=== PATIENT | female | born 1990 | race American Indian/Alaskan Native ===

== ENCOUNTER 2019-01-21 18:06 | Emergency (ER) | payer MEDICAID ==
--- NOTE | 2019-01-21 18:14 | Event Note ---
ED Screening Note Date of service: 01/21/19 Time: 18:11 ED Screening Note: This is a 28 y.o. F. that presents to the ER with N/V and abdominal cramping. Vomiting started last night. Reports hematemesis today. States abdominal cramping resolved. LMP 11/07/18 Patient is 10 weeks gestation. This initial assessment/diagnostic orders/clinical plan/treatment(s) is/are subject to change based on patients health status, clinical progression and re- assessment by fellow clinical providers in the ED. Further treatment and workup at subsequent clinical providers discretion. Patient/guardian urged not to elope from the ED as their condition may be serious if not clinically assessed and managed. Initial orders include: Labs
[2019-01-21 19:34] LABS: Basophils % (Auto) 0.4 % (0.0-1.8); Eosinophils % (Auto) 0.3 % (0.0-4.3); Hematocrit 35.4 % (30.3-42.9); Hemoglobin 12.1 gm/dl (10.1-14.3); Lymphocytes # (Auto) 2.5 K/mm3 (1.2-5.4); Lymphocytes % (Auto) 28.8 % (13.4-35.0); Mean Corpuscular HGB Conc 34 % (30-34); Mean Corpuscular Volume 90 fl (79-97); Monocytes % (Auto) 11.2 % (0.0-7.3); Platelet Count 282 K/mm3 (140-440); Red Blood Count 3.95 M/mm3 (3.65-5.03)
[2019-01-21 21:26] LABS: Color,Urine Yellow (Yellow)
[2019-01-21 21:27] LABS: Bilirubin,Urine Negative (Negative); Blood,Urine Negative (Negative)
--- NOTE | 2019-01-21 21:55 | Emergency Department Report ---
ED HPI - General Chief complaint: Nausea/Vomiting/Diarrhea Stated complaint: 10 WK PREG/VOMITING BLOOD Time Seen by Provider: 01/21/19 18:11 Source: patient Mode of arrival: Ambulatory Limitations: No Limitations - History of Present Illness Initial comments: Renata is a very pleasant 28-year-old female with history of PCOS and ovarian dermoid cyst who is currently 10 weeks 5 days who presents with 2 episodes of vomiting over the past 24 hours. She vomited bright red blood today one episode. She currently denies abdominal pain. No vomiting. Her [employer] Dr. Velazquez asked her to be evaluated in the emergency department. She is currently symptom-free. She did not have morning sickness. This is her first . Her estimated due date is August 14, 2019. She plans to deliver her baby at [place] or [facility]. MD Complaint: other (nondescript abdominal pain resolved. Concern about hematemesis) -: days(s) (1) Severity: mild Quality: cramping Consistency: now resolved Improves with: none Worsens with: none Associated symptoms: nausea/vomiting, other (hematemesis) :: Yes Number of weeks : 10 OB History - Current : no complications OB History - Previous Pregnancies: other (no previous pregnancies) Pre-toi care: followed by OB, previous ultrasound confi - Related Data Previous Rx's Medication Instructions Recorded Last Taken Type metroNIDAZOLE [Flagyl TAB] 500 mg PO Q12HR #14 tab 05/03/15 Unknown Rx traMADol [Ultram 50 MG tab] 50 mg PO Q6HR PRN #20 tablet 05/03/15 Unknown Rx Nitrofurantoin Blanco/M-Cryst 100 mg PO Q12HR 10 Days #20 capsule 01/21/19 Unknown Rx [Macrobid CAP] Promethazine [Phenergan] 25 mg PO Q6HR PRN #15 tab 01/21/19 Unknown Rx Allergies Allergy/AdvReac Type Severity Reaction Status Date / Time No Known Allergies Allergy Unverified 05/02/15 20:41 ED Review of Systems ROS: Stated complaint: 10 WK PREG/VOMITING BLOOD Other details as noted in HPI Comment: All other systems reviewed and negative Constitutional: denies: fever, malaise Gastrointestinal: abdominal pain, nausea, vomiting ED Past Medical Hx - Past Medical History Previous Medical History?: Yes Additional medical history: PCOS. RIGHT OVARIAN DERMOID CYST - Surgical History Past Surgical History?: No - Social History Smoking Status: Never Smoker Substance Use Type: None - Medications Home Medications: Home Medications Medication Instructions Recorded Confirmed Last Taken Type metroNIDAZOLE [Flagyl TAB] 500 mg PO Q12HR #14 tab 05/03/15 Unknown Rx traMADol [Ultram 50 MG tab] 50 mg PO Q6HR PRN #20 tablet 05/03/15 Unknown Rx Nitrofurantoin Blanco/M-Cryst 100 mg PO Q12HR 10 Days #20 capsule 01/21/19 Unknown Rx [Macrobid CAP] Promethazine [Phenergan] 25 mg PO Q6HR PRN #15 tab 01/21/19 Unknown Rx ED Physical Exam - General Limitations: No Limitations General appearance: alert, in no apparent distress, other (smiling, pleasant appears well and comfortable) - Head Head exam: Present: atraumatic, normocephalic - Eye Eye exam: Present: normal appearance - ENT ENT exam: Present: mucous membranes moist - Neck Neck exam: Present: normal inspection, full ROM - Respiratory Respiratory exam: Present: normal lung sounds bilaterally. Absent: respiratory distress, wheezes, rales, rhonchi, stridor - Cardiovascular Cardiovascular Exam: Present: regular rate, normal rhythm. Absent: systolic murmur, diastolic murmur, rubs, gallop - GI/Abdominal GI/Abdominal exam: Present: soft, normal bowel sounds. Absent: distended, tenderness, guarding, rebound - Extremities Exam Extremities exam: Present: normal inspection - Back Exam Back exam: Present: normal inspection - Neurological Exam Neurological exam: Present: alert, oriented X3 - Psychiatric Psychiatric exam: Present: normal affect, normal mood - Skin Skin exam: Present: warm, dry, intact, normal color. Absent: rash ED Course Vital Signs 01/21/19 01/21/19 01/21/19 18:09 21:15 21:31 Temperature Pulse Rate 86 Respiratory 16 Rate Blood Pressure [Left] O2 Sat by Pulse 98 100 100 Oximetry 01/21/19 21:43 Temperature 98.6 F Pulse Rate Respiratory Rate Blood Pressure 134/89 [Left] O2 Sat by Pulse Oximetry ED Medical Decision Making - Lab Data Result diagrams: 01/21/19 18:27 Laboratory Results - last 24 hr 01/21/19 01/21/19 01/21/19 18:27 18:27 18:27 WBC 8.8 RBC 3.95 Hgb 12.1 Hct 35.4 MCV 90 MCH 31 MCHC 34 RDW 14.0 Plt Count 282 Lymph % (Auto) 28.8 Blanco % (Auto) 11.2 H Eos % (Auto) 0.3 Baso % (Auto) 0.4 Lymph # 2.5 Blanco # 1.0 H Eos # 0.0 Baso # 0.0 Seg Neutrophils % 59.3 Seg Neutrophils # 5.2 HCG, Quant 43047 H Urine Color Urine Turbidity Urine pH Ur Specific [place] Urine Protein Urine Glucose (UA) Urine Ketones Urine Blood Urine Nitrite Urine Bilirubin Urine Urobilinogen Ur Leukocyte Esterase Urine WBC (Auto) Urine RBC (Auto) Blood Type B POSITIVE 01/21/19 20:09 WBC RBC Hgb Hct MCV MCH MCHC RDW Plt Count Lymph % (Auto) Blanco % (Auto) Eos % (Auto) Baso % (Auto) Lymph # [place] # Eos # Baso # Seg Neutrophils % Seg Neutrophils # HCG, Quant Urine Color Yellow Urine Turbidity Hazy Urine pH 6.0 Ur Specific [place] 1.015 Urine Protein 30 mg/dl Urine Glucose (UA) Negative Urine Ketones Negative Urine Blood Negative Urine Nitrite Negative Urine Bilirubin Negative Urine Urobilinogen 2.0 Ur Leukocyte Esterase Moderate Urine WBC (Auto) 25.0 H Urine RBC (Auto) 2.0 Blood Type - Medical Decision Making Mrs. Gonzáles resents with 2 episodes of vomiting the last with hematemesis. No evidence of active upper GI bleed. Normal vital signs including blood pressure 130/80. Heart rate 80. H&H within normal limits. Patient is blood type B positive. I gave reassurance. Prescribed promethazine. Also provided patient with copy of labs for her [employer] Dr. Velazquez. With recent ultrasound do not suspect ectopic . White cells noted in urine. I have prescribed nitrofurantoin. Critical care attestation.: If time is entered above; I have spent that time in minutes in the direct care of this critically ill patient, excluding procedure time. ED Disposition Clinical Impression: Hematemesis with nausea, First trimester , Pyuria Disposition: TO HOME OR SELFCARE Is pt being admited?: No Does the pt Need Aspirin: No Condition: Stable Instructions: Acute Nausea and Vomiting (ED) Prescriptions: Nitrofurantoin Blanco/M-Cryst [Macrobid CAP] 100 mg PO Q12HR 10 Days #20 capsule Promethazine [Phenergan] 25 mg PO Q6HR PRN #15 tab PRN Reason: Nausea Referrals: PRIMARY CARE, [Referring] - 2-3 Days
[2019-01-21 22:14] VITALS: BP 130/63
== END 2019-01-21 22:14 | disposition home or self-care (01) ==
LOC: ED 18:06
DX: O99.611 Diseases of the digestive system complicating pregnancy, first trimester (principal); K92.0 Hematemesis; O23.41 Unspecified infection of urinary tract in pregnancy, first trimester; O34.81 Maternal care for other abnormalities of pelvic organs, first trimester; E28.2 Polycystic ovarian syndrome; D27.0 Benign neoplasm of right ovary; Z79.899 Other long term (current) drug therapy; Z3A.10 10 weeks gestation of pregnancy
CPT/HCPCS: 36415; 81001; 84702; 85025; 86900; 86901; 87086

== ENCOUNTER 2019-08-02 20:40 | Outpatient (CLI) | payer MEDICAID ==
[2019-08-02] MEDS ORDERED: LACTATED RINGERS 1,000 ML ONE (21:30)
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
[2019-08-02 23:53] VITALS: BP 131/76
[2019-08-03] MEDS ORDERED: LACTATED RINGERS 1,000 ML IV ONE (05:54)
== END 2019-08-03 01:25 | disposition still patient (30) ==
LOC: TRG 20:40
PROVIDERS: ATTEND Obstetrics & Gynecology
DX: O9A.213 Injury, poisoning and certain other consequences of external causes complicating pregnancy, third trimester (principal); S61.011A Laceration without foreign body of right thumb without damage to nail, initial encounter; S81.812A Laceration without foreign body, left lower leg, initial encounter; O47.1 False labor at or after 37 completed weeks of gestation; Z3A.38 38 weeks gestation of pregnancy; V89.2XXA Person injured in unspecified motor-vehicle accident, traffic, initial encounter; Y93.89 Activity, other specified; Y92.89 Other specified places as the place of occurrence of the external cause; Y99.8 Other external cause status
CPT/HCPCS: 76815; 76819; J7120; 96360; 96361